=== PATIENT | male | born 1965 | race Caucasian/White ===

== ENCOUNTER → 2020-07-31 07:57 | Outpatient (CLI) | payer OTHER, SELFPAY ==
[2020-07-31 14:30] LABS: COVID19 -Nasal RAPID Negative (Negative)
== END ==
PROVIDERS: PCP Family Medicine; Visit Provider Physical Medicine & Rehabilitation
DX: Z20.822 Contact with and (suspected) exposure to COVID-19 (principal)
CPT/HCPCS: 87635; C9803

== ENCOUNTER 2020-08-02 08:28 | Outpatient (CLI) | payer OTHER, SELFPAY ==
[2020-08-02 08:42] VITALS: BP 130/87; PULSE 99; RESP 18; TEMP 37.1; O2SAT 100
--- NOTE | 2020-08-02 09:12 | PC.NURSE ---
Patient has been taking ASA 650mg in the morning for about the last month, Dr Hernandez reviewed with patient and the procedure has been post pone. Patient ok with plan and office notified to try and get him rescheduled.
== END 2020-08-02 09:14 | disposition home or self-care (01) ==
PROVIDERS: PCP Family Medicine; Referring Provider Family Medicine; Visit Provider Physical Medicine & Rehabilitation
DX: M47.812 Spondylosis without myelopathy or radiculopathy, cervical region (principal); Z53.8 Procedure and treatment not carried out for other reasons

== ENCOUNTER → 2020-10-31 09:50 | Outpatient (CLI) | payer OTHER, SELFPAY ==
--- NOTE | 2020-10-31 09:51 | DI.RAD.S_ITS ---
PROCEDURE: XR CERVICAL SPINE 4V OR 5V INDICATIONS: progressive neck pain TECHNIQUE: 5 views of the cervical spine acquired. COMPARISON: None. FINDINGS: Bones: No fractures or dislocations to the T1 level. Oblique images demonstrate no bony foraminal stenoses. Minimal degenerative disc disease is present to the C6-7 level where moderate disc height reduction is present without subluxation Soft tissues: No prevertebral soft tissue swelling. IMPRESSION: No foraminal stenosis seen. Moderate C6-C7 degenerative disc height reduction with minimal degenerative change more superiorly. No prior trauma found. Dictated by: Jorden Randall M.D. on 10/31/2020 at 10:20 Approved by: Jorden Randall M.D. on 10/31/2020 at 10:21
== END ==
PROVIDERS: PCP Family Medicine; Referring Provider Physical Medicine & Rehabilitation; Visit Provider Physical Medicine & Rehabilitation
DX: M47.812 Spondylosis without myelopathy or radiculopathy, cervical region (principal); M50.20 Other cervical disc displacement, unspecified cervical region; M54.81 Occipital neuralgia; M47.816 Spondylosis without myelopathy or radiculopathy, lumbar region; M51.26 Other intervertebral disc displacement, lumbar region; G56.03 Carpal tunnel syndrome, bilateral upper limbs
CPT/HCPCS: 64405; 64450; 72050; 99214; J1100

== ENCOUNTER 2021-07-31 13:26 | Emergency (ER) | payer OTHER, SELFPAY ==
[2021-07-31] VITALS (9 sets, daily range): BP systolic 133–161; BP diastolic 88–101; PULSE 73–108; RESP 12–21; TEMP 36.5–36.8; O2SAT 95–100; BMI 27.1
--- NOTE | 2021-07-31 13:35 | DI.RAD.S_ITS ---
PROCEDURE: XR CHEST 1V INDICATIONS: chest pain TECHNIQUE: One view of the chest was acquired. COMPARISON: None. FINDINGS: Surgical changes and devices: None. Lungs and pleura: Lungs are clear. No pleural effusions or pneumothorax. Mediastinum: Mediastinal contours appear normal. Heart size is normal. Bones and chest wall: No suspicious bony lesions. Overlying soft tissues appear unremarkable. IMPRESSION: No acute cardiopulmonary findings. Dictated by: Elizabeth Bedoya M.D. on 07/31/2021 at 14:22 Approved by: Elizabeth Bedoya M.D. on 07/31/2021 at 14:22
[2021-07-31 13:58] LABS: Add Manual Diff / Slide Review NO; Basophils Absolute Auto 100 /uL (0-100); Basophils Percent Auto 0.8 % (0-2); Eosinophils Absolute Auto 200 /uL (0-450); Eosinophils Percent Auto 3.5 % (2-4); Hematocrit 43.8 % (41-53); Hemoglobin 15.1 g/dL (13.5-17.5); Lymphocytes Absolute Auto 2200 /uL (1100-4500); Lymphocytes Percent Auto 33.7 % (25-40); Mean Corpuscular HGB Conc 34.6 % (30-36); Mean Corpuscular Hemoglobin 30.7 PG (26-34); Mean Corpuscular Volume 88.9 fL (80-100); Monocytes Absolute Auto 300 /uL (0-900); Monocytes Percent Auto 4.8 % (3-14); Neutrophils Absolute Auto 3700 /uL (1500-7000); Neutrophils Percent Auto 57.2 % (50-75); Platelet Count 219 X10^3/uL (150-400); Red Blood Cell Count 4.93 X10^6/uL (4.5-5.9); Red Cell Distribution Width 12.5 % (11.6-14.8); White Blood Cell Count 6.5 X10^3/uL (4.5-11.0)
[2021-07-31 14:01] LABS: Alanine Aminotransferase 21 IU/L (<50); Albumin 4.3 g/dL (3.5-5.0); Albumin Globulin Ratio 1.4 (1.0-2.8); Alkaline Phosphatase 89 U/L (38-126); Aspartate Aminotransferase 21 IU/L (17-59); BUN Creatinine Ratio 12.9 (6-22); Bilirubin Total 0.5 mg/dL (0.2-1.3); Blood Urea Nitrogen 13 mg/dL (9-20); Calcium 8.7 mg/dL (8.4-10.2); Carbon Dioxide 29 mmol/L (22-32); Chloride 104 mmol/L (98-107); Creatine Kinase 123 U/L (55-170); Estimated Glomerular Filt Rate > 60 mL/min (>60); Glucose 110 mg/dL (70-100); HEMOLYSIS < 15 (0-50); Lipase 149 U/L (23-300); Potassium 3.7 mmol/L (3.4-5.1); Sodium 141 mmol/L (137-145); Total Protein 7.3 g/dL (6.3-8.2)
[2021-07-31 14:13] LABS: Troponin I < 0.012 ng/mL (0.01-0.034)
[2021-07-31 14:17] LABS: CKMB % Relative Index 1.4 % (1.5-5.0); Creatine Kinase MB 1.67 ng/mL (<2.37)
--- NOTE | 2021-07-31 14:30 | ED_ITS ---
HPI - Chest Pain General Chief Complaint: Chest Pain Stated Complaint: Chest pain and pressure, 2d Time Seen by Provider: 07/31/21 14:15 Source: patient Mode of arrival: Ambulatory Limitations: no limitations History of Present Illness HPI narrative: Patient is a 56-year-old male history of migraines and hiatal hernia presenting today with chest discomfort. He says the last 2 days he has had increasing chest discomfort starting his epigastric area and radiating around like a band. He said it was quite bad yesterday and today it is a little bit better however he noticed stable going up stairs today. He denies any shortness of breath. He says it is sharp and stabbing in nature but eventually goes away. His he denies any fever chills her palpitations. His he himself has no known coronary artery disease however he the uncle who at the age of 62 and his maternal grandmother also in her 60s from cardiac issues. Actually had an echocardiogram done a couple 1 to go can see was having some shortness of breath he said that was negative but he did not have any stress test. He is got back from [place] 2 weeks ago he said there he was checked out for a DVT in his left leg he had some bruising on that side. He said they did not find blood clot. He denies any orthopnea. Related Data Home Medications Medication Instructions Recorded Confirmed duloxetine 60 mg capsule,delayed 60 mg PO DAILY 06/11/20 04/10/21 release tizanidine 4 mg capsule 4 mg PO BEDTIME 06/11/20 04/10/21 topiramate 50 mg tablet 50 mg PO BID 06/11/20 04/10/21 gabapentin 300 mg capsule 300 mg PO TID 10/31/20 04/10/21 galcanezumab-gnlm 120 mg/mL 120 mg SUBCUT QMONTH 04/10/21 04/10/21 subcutaneous pen injector (Emgality Pen) Previous Rx's Medication Instructions Recorded tramadol 50 mg tablet 50 mg PO TID PRN #30 tab 08/02/20 Allergies Allergy/AdvReac Type Severity Reaction Status Date / Time No Known Drug Allergies Allergy Verified 07/31/21 13:36 Review of Systems Review of Systems Narrative: GENERAL: Denies chills, fatigue, malaise, fever, sweats, travel HEENT: Denies sinus pain, ear pain, sore throat, difficulty swallowing, neck pain RESPIRATORY: Denies dyspnea, cough, wheezing, hemoptysis, sputum. CARDIOVASCULAR: See HPI GASTROINTESTINAL: Denies nausea, vomiting, abdominal pain, diarrhea, constipation, melena. : Denies dysuria, frequency, incontinence, hematuria, urinary retention, flank pain. MUSCULOSKELETAL: Denies weakness, joint pain, or bony pain SKIN: No rash, no erythema, no pruritus NEUROLOGIC: Denies weakness, dizziness, headache, numbness, change in speech, confusion PSYCHIATRIC: No concerning psychosocial issues. 12 point review of systems is negative except for those stated above and HPI Patient History Medical History Arrhythmia Carpal tunnel syndrome on both sides Facet arthropathy, cervical Facet arthropathy, lumbar Herniated nucleus pulposus, L4-5 HNP (herniated nucleus pulposus), cervical Migraines Occipital neuralgia of left side Pain Surgical History History of hernia surgery Family History Mother Depression Arthritis Hypertension Stroke Father Hyperlipidemia Brother Alcoholic Social History Smoking Status: Never smoker frequency: 3-4 times per week duration: 30-45 minutes/day Smoking Status: Never smoker alcohol intake frequency: holidays/special occasions only Substance Use Type: does not use Exam Initial Vital Signs Initial Vital Signs: Vital Signs Temperature 98.3 F 07/31/21 13:30 Pulse Rate 103 H 07/31/21 13:30 Respiratory Rate 12 07/31/21 13:30 Blood Pressure 161/95 H 07/31/21 13:30 Pulse Oximetry 100 07/31/21 13:30 GENERAL: Well-appearing 56-year-old male in no acute distress. HEENT: Head atraumatic,EOMI, pupils reactive, face symmetric, moist mucous membranes CARDIOVASCULAR: Regular rate and rhythm without murmurs, rubs or gallops. RESPIRATORY: Breath sounds equal bilaterally, no wheezes rales or rhonchi. ABDOMEN: Soft, nontender. Normoactive bowel sounds all 4 quadrants. No guarding or rebound. EXTREMITIES: Normal range of motion, no clubbing or edema. Neurovascularly intact NEUROLOGICAL: Alert and oriented x4.Normal gait and speech. SKIN: Warm, dry, no laceration, no petechiae, no rashes or lesions. Scores HEART Score Heart Score history: Moderately Suspicious Heart Score EKG: Normal Heart Score Age: 45-64 years old Heart Score risk factors: 1-2 risk factors Heart Score troponin: < or = to normal limit Heart Score Total: 3 PERC Score Age greater than or equal to 50 years: Yes Heart rate greater than or equal to 100 bpm: No Room Air O2 Sat less than 95%: No Unilateral leg swelling: No Recent trauma or surgery: No Hemoptysis: No Prior PE or DVT: No Hormone Use: No Total PERC Score: 1 Course Orders Ordered: Discontinued Medications Aspirin (Aspirin 81 Mg Chew Tab) 324 mg PO NOW ONE Stop: 07/31/21 14:47 Last Admin: 07/31/21 15:49 Dose: 324 mg Documented by: NIK Vital Signs Vital signs: Vital Signs - 8 hr 07/31/21 13:30 07/31/21 13:33 07/31/21 13:36 Temperature 98.3 F Pulse Rate 103 H 108 H 104 H Respiratory Rate 12 15 21 Blood Pressure 161/95 H 161/95 H Pulse Oximetry 100 98 98 07/31/21 14:00 07/31/21 14:30 07/31/21 15:00 Temperature Pulse Rate 84 86 81 Respiratory Rate 17 18 19 Blood Pressure 152/93 H 154/93 H 150/100 H Pulse Oximetry 97 97 95 07/31/21 15:30 07/31/21 16:00 Temperature Pulse Rate 84 73 Respiratory Rate 17 17 Blood Pressure 153/101 H Pulse Oximetry 95 96 MDM - Chest Pain Lab Data Result diagrams: 07/31/21 13:42 07/31/21 13:42 Labs: Lab Results 07/31/21 07/31/21 07/31/21 Range/Units 13:42 13:42 13:42 WBC 6.5 (4.5-11.0) X10^3/uL RBC 4.93 (4.5-5.9) X10^6/uL Hgb 15.1 (13.5-17.5) g/dL Hct 43.8 (41-53) % MCV 88.9 (80-100) fL MCH 30.7 (26-34) PG MCHC 34.6 (30-36) % RDW 12.5 (11.6-14.8) % Plt Count 219 (150-400) X10^3/uL Neut % (Auto) 57.2 (50-75) % Lymph % (Auto) 33.7 (25-40) % Trimble % (Auto) 4.8 (3-14) % Eos % (Auto) 3.5 (2-4) % Baso % (Auto) 0.8 (0-2) % Neut # (Auto) 3700 (3695-5450) /uL Lymph # (Auto) 2200 (8854-1434) /uL Trimble # (Auto) 300 (0-900) /uL Eos # (Auto) 200 (0-450) /uL Baso # (Auto) 100 (0-100) /uL D-Dimer < 200 (<230) ng/mL Sodium 141 (137-145) mmol/L Potassium 3.7 (3.4-5.1) mmol/L Chloride 104 (98-107) mmol/L Carbon Dioxide 29 (22-32) mmol/L BUN 13 (9-20) mg/dL Creatinine 1.01 (0.66-1.25) mg/dL Estimated GFR > 60 (>60) mL/min BUN/Creatinine Ratio 12.9 (6-22) Glucose 110 H (70-100) mg/dL Calcium 8.7 (8.4-10.2) mg/dL Magnesium 2.0 (1.6-2.3) mg/dL Total Bilirubin 0.5 (0.2-1.3) mg/dL AST 21 (17-59) IU/L ALT 21 (<50) IU/L Alkaline Phosphatase 89 (38-126) U/L Total Creatine Kinase 123 (55-170) U/L CK-MB (CK-2) 1.67 (<2.37) ng/mL CK-MB (CK-2) Rel Index 1.4 L (1.5-5.0) % Troponin I < 0.012 (0.01-0.034) ng/mL Total Protein 7.3 (6.3-8.2) g/dL Albumin 4.3 (3.5-5.0) g/dL Globulin 3.0 (1.7-4.1) g/dL Albumin/Globulin Ratio 1.4 (1.0-2.8) Lipase 149 (23-300) U/L 07/31/21 Range/Units 15:50 WBC (4.5-11.0) X10^3/uL RBC (4.5-5.9) X10^6/uL Hgb (13.5-17.5) g/dL Hct (41-53) % MCV (80-100) fL MCH (26-34) PG MCHC (30-36) % RDW (11.6-14.8) % Plt Count (150-400) X10^3/uL Neut % (Auto) (50-75) % Lymph % (Auto) (25-40) % Trimble % (Auto) (3-14) % Eos % (Auto) (2-4) % Baso % (Auto) (0-2) % Neut # (Auto) (0630-0057) /uL Lymph # (Auto) (1063-7892) /uL Trimble # (Auto) (0-900) /uL Eos # (Auto) (0-450) /uL Baso # (Auto) (0-100) /uL D-Dimer (<230) ng/mL Sodium (137-145) mmol/L Potassium (3.4-5.1) mmol/L Chloride (98-107) mmol/L Carbon Dioxide (22-32) mmol/L BUN (9-20) mg/dL Creatinine (0.66-1.25) mg/dL Estimated GFR (>60) mL/min BUN/Creatinine Ratio (6-22) Glucose (70-100) mg/dL Calcium (8.4-10.2) mg/dL Magnesium (1.6-2.3) mg/dL Total Bilirubin (0.2-1.3) mg/dL AST (17-59) IU/L ALT (<50) IU/L Alkaline Phosphatase (38-126) U/L Total Creatine Kinase (55-170) U/L CK-MB (CK-2) (<2.37) ng/mL CK-MB (CK-2) Rel Index (1.5-5.0) % Troponin I < 0.012 (0.01-0.034) ng/mL Total Protein (6.3-8.2) g/dL Albumin (3.5-5.0) g/dL Globulin (1.7-4.1) g/dL Albumin/Globulin Ratio (1.0-2.8) Lipase (23-300) U/L Imaging Data Chest x-ray: Radiologist's Impression: Sanjay Morris MR#: [id number] : 1965 Acct:[id number] Age/Sex: 56 / M Date of Service: 07/31/21 Loc: ED Accession Number: [id number] ?? Procedure: XR chest 1V Ordering Provider: Mary Mae D.O. PROCEDURE:? XR CHEST 1V ? INDICATIONS:? chest pain ? TECHNIQUE:? One view of the chest was acquired.? ? COMPARISON:? None. ? FINDINGS:? ? Surgical changes and devices:? None.? ? Lungs and pleura:? Lungs are clear.? No pleural effusions or pneumothorax.? ? Mediastinum:? Mediastinal contours appear normal.? Heart size is normal.? ? Bones and chest wall:? No suspicious bony lesions.? Overlying soft tissues appear unremarkable.? ? IMPRESSION:? No acute cardiopulmonary findings. ? ? Dictated by: Elizabeth Bedoya M.D. on 07/31/2021 at 14:22 ? ? Approved by: Elizabeth Bedoya M.D. on 07/31/2021 at 14:22? ECG Data Interpretation: Normal sinus rhythm rate 105 MT interval 154 QRS [address] changes no T- wave inversion, no priors EKG 2. Heart rate 71 MT interval 158 QRS [address] changes similar to previous EKG she MDM Narrative Medical decision making narrative: The patient is having some chest discomfort it is with exertion and sometimes not. He has a heart score of 3 symptoms may be related to has hiatal hernia. At this time patient has been chest pain-free in the emergency department. The patient did have calf pain with recent travel perc score is 1 and D-dimer is negative unlikely to be pulmonary embolism. Recommend he follow up outpatient with stress test and echocardiogram and I urged him to return to the emergency department if his chest pain changes at any time. Discharge Plan Departure Patient Disposition: Home Clinical Impression: Atypical chest pain Instructions: DI for Atypical Chest Pain Activity Restrictions/Additional Instructions: *You have been diagnosed with atypical chest pain *What to do: Febrile need to follow up with your primary care provider for a stress test and echocardiogram It is possible this pain may or may not be related to your hiatal hernia *Continue to take medications as directed *Follow up with your primary care provider in 2-3 days or call [phone] *Return to ER if you should have increasing chest pain, shortness of breath d ifficulty breathing or any new, worsening or concerning symptoms Prescriptions: No Action tramadol 50 mg tablet 50 mg PO TID PRN (Reason: pain) Qty: 30 1RF Emgality Pen 120 mg/mL pen injector 120 mg SUBCUT QMONTH 0RF tizanidine 4 mg capsule 4 mg PO BEDTIME 0RF duloxetine 60 mg capsule,delayed release(DR/EC) 60 mg PO DAILY 0RF topiramate 50 mg tablet 50 mg PO BID 0RF gabapentin 300 mg capsule 300 mg PO TID 0RF Referrals: Elliott Taylor MD [Primary Care Provider] -
[2021-07-31 15:02] LABS: D Dimer < 200 ng/mL (<230)
[2021-07-31] MEDS: ASPIRIN 81 MG CHEW TAB 324 MG PO (15:49)
[2021-07-31 16:20] LABS: Troponin I < 0.012 ng/mL (0.01-0.034)
== END 2021-07-31 17:15 | disposition home or self-care (01) ==
PROVIDERS: Emergency Provider Emergency Medicine; PCP Family Medicine
DX: R07.89 Other chest pain (principal)
CPT/HCPCS: 36415; 71045; 80053; 82550; 82553; 83690; 83735; 84484; 85025; 85379; 93005; 93010; 99284

== ENCOUNTER → 2021-10-21 17:37 | Outpatient (CLI) | payer OTHER, SELFPAY ==
--- NOTE | 2021-10-21 17:39 | DI.MRI.S_ITS ---
PROCEDURE: MR CERVICAL SPINE WO CON INDICATIONS: left axial neck pain and headaches TECHNIQUE: Noncontrast sagittal T1 spin echo and T2 fast spin echo, sagittal STIR, foraminal oblique sagittal T2 fast spin echo, and axial gradient echo or T2 fast spin echo through the cervical spine. COMPARISON: [facility], RG, MRI C-SPINE WITH CONTRAST, 01/25/2020, 12:34. [facility], CR, XR CERVICAL SPINE 4V OR 5V, 10/31/2020, 9:50. Outside Film, CT, CT SOFT TISSUE NECK WITH CONTRAST, 11/07/2020, 9:48. FINDINGS: Image quality: This examination is limited by involuntary motion artifact. Alignment and Curvature: There is normal bony alignment. Bone Marrow: Marrow demonstrates normal overall signal. Spinal Cord: Visualized spinal cord has normal size and signal. No cerebellar tonsillar herniation. Paraspinous Soft Tissues: No paravertebral masses. Prevertebral soft tissues are normal in thickness. C2-C3: No significant abnormality is seen. C3-C4: Mild loss of disc height is seen. Loss of disc signal is seen. Mild to moderate generalized disc osteophyte complex is seen, with a mild central disc osteophyte protrusion. Moderate facet hypertrophy is seen, left worse than right. There is at least moderate bilateral neural foraminal narrowing seen. Mild to moderate central canal narrowing is seen. These degenerative changes appear mildly progressed compared to 2020. C4-C5: The disc height is well-preserved. Loss of disc signal is seen at this level. A mild degree of generalized disc osteophyte complex is seen. At least moderate facet hypertrophy is seen, left worse than right. There is moderate to severe left-sided and at least moderate right-sided neural foraminal narrowing. Mild central canal narrowing is seen. When comparison is made with the prior images, these findings are similar. C5-C6: Mild loss of disc height is seen. Loss of disc signal is seen. Moderate generalized disc osteophyte complex is seen. Uncovertebral joint hypertrophy is seen at this level. At least moderate facet hypertrophy is seen. Moderate to severe bilateral neural foraminal narrowing can be seen. There is at least moderate central canal narrowing seen, which is exacerbated by hypertrophy of the posterior elements. These degenerative changes are worse than in 2020. C6-C7: Moderate loss of disc height is seen. Loss of disc signal is seen. Mild to moderate disc osteophyte complex is seen, which is eccentric to the left. Moderate facet joint hypertrophy is seen. There is moderate to severe left-sided and moderate right-sided neural foraminal narrowing. Mild central canal narrowing is seen. When comparison is made with the prior images, these findings are similar. C7-T1: The disc height is well-preserved. Loss of disc signal is seen at this level. A mild degree of generalized disc osteophyte complex is seen. Moderate facet joint hypertrophy is seen. No significant neural foraminal or central canal narrowing can be seen. When comparison is made with the prior images, these findings are similar. IMPRESSION: Multiple levels of cervical spine degenerative change are seen, which are overall worst at the C5-C6 level. The degenerative changes are overall mildly progressed compared to 2020. Dictated by: Anshul Lai M.D. on 10/21/2021 at 17:27 Approved by: Anshul Lai M.D. on 10/21/2021 at 17:31
== END ==
PROVIDERS: PCP Family Medicine; Referring Provider Physical Medicine & Rehabilitation; Visit Provider Physical Medicine & Rehabilitation
DX: M54.81 Occipital neuralgia (principal); M50.20 Other cervical disc displacement, unspecified cervical region; M47.812 Spondylosis without myelopathy or radiculopathy, cervical region
CPT/HCPCS: 72141

== ENCOUNTER → 2023-07-13 09:55 | Outpatient (CLI) | payer MEDICARE, OTHER, SELFPAY ==
--- NOTE | 2023-07-13 09:57 | DI.RAD.S_ITS ---
PROCEDURE: XR CERVICAL SPINE 4V OR 5V INDICATIONS: NECK PAIN TECHNIQUE: 5 views of the cervical spine acquired. COMPARISON: [facility], CR, XR CERVICAL SPINE 4V OR 5V, 10/31/2020, 9:50. FINDINGS: Bones: No acute fractures or dislocations to the T1 level. Oblique images demonstrate multifocal mild to moderate neural foraminal narrowing. Multilevel disc space narrowing degenerative endplate changes and multilevel uncovertebral joint and facet hypertrophy are present. Soft tissues: No prevertebral soft tissue swelling. IMPRESSION: [id number] multilevel spondylosis. No acute osseous abnormality. Approved by: Soren Crespo M.D. on 07/13/2023 at 11:05
== END ==
PROVIDERS: PCP Family Medicine; Referring Provider Physical Medicine & Rehabilitation; Visit Provider Physical Medicine & Rehabilitation
DX: M54.81 Occipital neuralgia (principal); M47.22 Other spondylosis with radiculopathy, cervical region; M50.10 Cervical disc disorder with radiculopathy, unspecified cervical region; M48.02 Spinal stenosis, cervical region; G56.03 Carpal tunnel syndrome, bilateral upper limbs; M51.26 Other intervertebral disc displacement, lumbar region; M47.816 Spondylosis without myelopathy or radiculopathy, lumbar region
CPT/HCPCS: 72050; 99214

== ENCOUNTER 2023-08-11 08:16 | Outpatient (CLI) | payer MEDICARE, OTHER, SELFPAY ==
[2023-08-11] VITALS (10 sets, daily range): BP systolic 134–163; BP diastolic 84–93; PULSE 79–103; RESP 11–18; TEMP 36.3; O2SAT 14–100
--- NOTE | 2023-08-11 09:15 | DI.RAD.S_ITS ---
PROCEDURE: PAIN C/T INTERLAMINAR INJECT INDICATIONS: C6-7 translaminar KARYN COMPARISON: MR, MR CERVICAL SPINE WO CON, 10/21/2021, 17:45. [facility], CR, XR CERVICAL SPINE 4V OR 5V, 07/13/2023, 10:16. FINDINGS: Fluoroscopic spot filming was performed to verify placement of spinal needles at the C6-C7 level(s), as labeled on the films. Appropriate location(s) of the needle tip(s) was confirmed by injection of iodinated contrast. IMPRESSION: Fluoroscopy for pain management. Dictated by: Alejandro Donato M.D. on 08/11/2023 at 11:22 Approved by: Alejandro Donato M.D. on 08/11/2023 at 11:23
[2023-08-11] MEDS: MIDAZOLAM 2 MG/2 ML VIAL IV (09:37)
[2023-08-11] MEDS: iopamidoL 15 ML VIAL 3 ML INJ (09:42)
[2023-08-11] MEDS: BUPIVACAINE 0.25% (PF) VIAL 2 ML INJ (09:42)
[2023-08-11] MEDS: DEXAMETHASONE 10 MG/ML VIAL 20 MG INJ (09:42)
[2023-08-11] MEDS: fentaNYL 100 MCG/2 ML INJ 50 MCG IV (09:48)
--- NOTE | 2023-08-11 10:01 | P.PCN_ITS ---
Date/Time/Diagnoses Date of procedure: 08/11/23 Time of procedure: 10:01 Pre-procedure diagnosis: 1. CERVICAL STENOSIS, 2. CERVICAL HNP WITH UPPER EXTREMITY RADICULAR FEATURES Post-procedure diagnosis: same Procedure Notes Procedure: 1. FLUORSCOPICALLY GUIDED CONTRAST CONTROLLED INTERLAMINAR EPIDURAL STEROID INJECTION - C6/7 TL KARYN Indications: Sanjay is referred by Dr. Taylor for treatment of Cervical HNP with Upper Extremity Paresthesias. Physician: Piotr Hernandez Total Fluoroscopy time (seconds): 50 Total sedation minutes: 21 Complications: none Procedure in detail & Post-procedure care: FINDINGS Cervical Stenosis due to disc deterioration and nerve root irritation and nerve root irritation DESCRIPTION OF PROCEDURE Fluoroscopically guided, contrast-controlled C6/7 translaminar epidural steroid injection with conscious sedation. Following review of allergy and review of potential side effects and complications, including, but not necessarily limited to, infection, allergic reaction, local tissue breakdown, temporary as well as permanent nerve injury, stroke, paralysis, and possible , the patient indicated that patient understood and agreed to proceed. An informed consent document was signed by the patient, witnessed by a nurse, and placed in the patient's chart. Additionally, other treatment options including modalities, medications, and physical therapy were reviewed with the patient. After review of previous anaesthesic history and IV conscious sedation the patient was deemed safe to proceed with today?s procedure with IV conscious pipo tion as ASA class II designation. Safety time-out was performed to confirm patient ID, procedure to be performed and site of procedure. IV sedation was accomplished with a combination of 2mg of Versed and 50mcg of Fentanyl administered by the RN after DO order, titrated to patient comfort during the course of the procedure while the patient remained responsive to all verbal commands. In the prone position, following sterile prep and drape of the cervical region, the C6/7 translaminar space was identified fluoroscopically. The skin was anesthetized via a 25-gauge 1.5-inch needle with 1% lidocaine solution. At this point, a 25-gauge, 2.5-inch short bevel spinal needle was atraumatically introduced and advanced under fluoroscopic guidance into epidural space at the C6/7 translaminar space. Depth was confirmed on lateral view. Radiological data, including multiple fluoroscopic views of the cervical spine, reveal a spinal needle at the C6/7 translaminar space. Lateral views then show placement of the needle in the epidural space. Subsequent views show contrast material flowing superiorly and inferiorly in the epidural space. DSA fluoroscopy with live contrast injection, once again, confirmed no vascular or intrathecal uptake. At this point, using loss of resistance technique with saline and air, the epidural space was entered. Following negative aspiration, injection of approximately 1.5 cc of Isovue-200 with live fluoroscopy in the AP view confirmed epidural flow in the epidural space without vascular or intrathecal uptake observed. Subsequently, a test dose of 1 cc of 1% lidocaine solution was injected and patient was observed for two minutes without signs or symptoms of complications, including abdominal pain, shortness of breath, bilateral upper or lower extremity weakness, nausea and vomiting, prior to steroid injection. At this point, 2cc or 20mg of dexamethasone was then injected without incident. The patient tolerated the procedure well without signs or symptoms of complications prior to being transferred to the recovery area for further monitoring, The patient was then transferred to the recovery area where they were observed for an appropriate period of time after the injection. The patient reported a VAS score of 6 prior to the procedure and a post-procedure VAS of 0. POST OP INSTRUCTIONS The patient was provided a Pain Log to continue to record their response to the target-specific procedure prior to follow-up visit with the referring provider. Additionally, specific post-injection care instructions and a contact number to our office were provided if concerns arise regarding possible complications associated with the procedure are suspected.
== END 2023-08-11 10:25 | disposition home or self-care (01) ==
LOC: RAD 08:17
PROVIDERS: PCP Family Medicine; Referring Provider Physical Medicine & Rehabilitation; Visit Provider Physical Medicine & Rehabilitation
DX: M48.02 Spinal stenosis, cervical region (principal); M50.123 Cervical disc disorder at C6-C7 level with radiculopathy
CPT/HCPCS: 62321; 99152; J1100; J2250; J3010; J3490

== ENCOUNTER 2024-05-24 08:38 | Outpatient (CLI) | payer MEDICARE, OTHER, SELFPAY ==
[2024-05-24] VITALS (9 sets, daily range): BP systolic 112–140; BP diastolic 70–88; PULSE 57–68; RESP 16–18; TEMP 36.6; O2SAT 93–100
--- NOTE | 2024-05-24 08:39 | DI.RAD.S_ITS ---
PROCEDURE: PAIN C/T INTERLAMINAR INJECT INDICATIONS: C 6/7 TRANSLAMINAR KARYN COMPARISON: [facility], , PAIN C/T INTERLAMINAR INJECT, 08/11/2023, 9:41. FINDINGS/IMPRESSION: Fluoroscopic spot filming was performed to verify placement of spinal needles at the C6-7 level(s), as labeled on the films. Appropriate location(s) of the needle tip(s) was confirmed by injection of iodinated contrast. Dictated by: Naif Valdez M.D. on 05/24/2024 at 17:13 Approved by: Naif Valdez M.D. on 05/24/2024 at 17:13
[2024-05-24] MEDS: MIDAZOLAM 2 MG/2 ML VIAL IV (10:32)
[2024-05-24] MEDS: DEXAMETHASONE 10 MG/ML VIAL 20 MG INJ (10:39)
[2024-05-24] MEDS: BUPIVACAINE 0.25% (PF) VIAL 2 ML INJ (10:39)
[2024-05-24] MEDS: iopamidoL 15 ML VIAL 3 ML INJ (10:39)
--- NOTE | 2024-05-24 10:53 | P.PCN_ITS ---
Date/Time/Diagnoses Date of procedure: 05/24/24 Time of procedure: 10:53 Pre-procedure diagnosis: 1. CERVICAL STENOSIS, 2. CERVICAL HNP WITH UPPER EXTREMITY RADICULAR FEATURES Post-procedure diagnosis: same Procedure Notes Procedure: 1. FLUORSCOPICALLY GUIDED CONTRAST CONTROLLED INTERLAMINAR EPIDURAL STEROID INJECTION - C6/7 TL KARYN Indications: Sanjay is referred by Dr. Taylor for treatment of Cervical HNP with Upper Extremity Paresthesias. Physician: Piotr Hernandez Total Fluoroscopy time (seconds): 26 Total sedation minutes: 16 Complications: none Procedure in detail & Post-procedure care: FINDINGS Cervical Stenosis due to disc deterioration and nerve root irritation and nerve root irritation DESCRIPTION OF PROCEDURE Fluoroscopically guided, contrast-controlled C6/7 translaminar epidural steroid injection with conscious sedation. Following review of allergy and review of potential side effects and complications, including, but not necessarily limited to, infection, allergic reaction, local tissue breakdown, temporary as well as permanent nerve injury, stroke, paralysis, and possible , the patient indicated that patient understood and agreed to proceed. An informed consent document was signed by the patient, witnessed by a nurse, and placed in the patient's chart. Additionally, other treatment options including modalities, medications, and physical therapy were reviewed with the patient. After review of previous anaesthesic history and IV conscious sedation the patient was deemed safe to proceed with today?s procedure with IV conscious pipo tion as ASA class II designation. Safety time-out was performed to confirm patient ID, procedure to be performed and site of procedure. IV sedation was accomplished with a combination of 2mg of Versed administered by the RN after DO order, titrated to patient comfort during the course of the procedure while the patient remained responsive to all verbal commands. In the prone position, following sterile prep and drape of the cervical region, the C6/7 translaminar space was identified fluoroscopically. The skin was anesthetized via a 25-gauge 1.5-inch needle with 1% lidocaine solution. At this point, a 25-gauge, 2.5-inch short bevel spinal needle was atraumatically introduced and advanced under fluoroscopic guidance into epidural space at the C6/7 translaminar space. Depth was confirmed on lateral view. Radiological data, including multiple fluoroscopic views of the cervical spine, reveal a spinal needle at the C6/7 translaminar space. Lateral views then show placement of the needle in the epidural space. Subsequent views show contrast material flowing superiorly and inferiorly in the epidural space. DSA fluoroscopy with live contrast injection, once again, confirmed no vascular or intrathecal uptake. At this point, using loss of resistance technique with saline and air, the epidural space was entered. Following negative aspiration, injection of approximately 1.5 cc of Isovue-200 with live fluoroscopy in the AP view confirmed epidural flow in the epidural space without vascular or intrathecal uptake observed. Subsequently, a test dose of 1 cc of 1% lidocaine solution was injected and patient was observed for two minutes without signs or symptoms of complications, including abdominal pain, shortness of breath, bilateral upper or lower extremity weakness, nausea and vomiting, prior to steroid injection. At this point, 2cc or 20mg of dexamethasone was then injected without incident. The patient tolerated the procedure well without signs or symptoms of com plications prior to being transferred to the recovery area for further monitoring, The patient was then transferred to the recovery area where they were observed for an appropriate period of time after the injection. The patient reported a VAS score of 6 prior to the procedure and a post-procedure VAS of 0. POST OP INSTRUCTIONS The patient was provided a Pain Log to continue to record their response to the target-specific procedure prior to follow-up visit with the referring provider. Additionally, specific post-injection care instructions and a contact number to our office were provided if concerns arise regarding possible complications associated with the procedure are suspected.
== END 2024-05-24 11:08 | disposition home or self-care (01) ==
LOC: RAD 08:38
PROVIDERS: PCP Family Medicine; Referring Provider Physical Medicine & Rehabilitation; Visit Provider Physical Medicine & Rehabilitation
DX: M48.02 Spinal stenosis, cervical region (principal); M50.123 Cervical disc disorder at C6-C7 level with radiculopathy
CPT/HCPCS: 62321; 99152; J1100; J2250; J3490

== ENCOUNTER → 2024-07-13 09:55 | Outpatient (CLI) | payer MEDICARE, OTHER, SELFPAY ==
--- NOTE | 2024-07-13 09:57 | DI.RAD.S_ITS ---
PROCEDURE: XR LUMBAR SPINE MIN 4V INDICATIONS: Progressive LBP TECHNIQUE: 5 views of the lumbar spine were acquired, including bilateral oblique views. COMPARISON: None. FINDINGS: Lumbar spine curvature and alignment: Normal. Bones: There are no osseous abnormalities. Disc spaces: Severe L4-5 and moderate L5-S1 degenerative disc and facet disease noted. Soft tissues: No soft tissue swelling, calcification or mass. IMPRESSION: Degeneration Dictated by: Luis Albarran M.D. on 07/14/2024 at 11:08 Approved by: Luis Albarran M.D. on 07/14/2024 at 11:09
== END ==
PROVIDERS: PCP Family Medicine; Referring Provider Physical Medicine & Rehabilitation; Visit Provider Physical Medicine & Rehabilitation
DX: M51.26 Other intervertebral disc displacement, lumbar region (principal); M51.369 Other intervertebral disc degeneration, lumbar region without mention of lumbar back pain or lower extremity pain; M51.379 Other intervertebral disc degeneration, lumbosacral region without mention of lumbar back pain or lower extremity pain; M47.816 Spondylosis without myelopathy or radiculopathy, lumbar region; M47.817 Spondylosis without myelopathy or radiculopathy, lumbosacral region; M47.22 Other spondylosis with radiculopathy, cervical region; M50.10 Cervical disc disorder with radiculopathy, unspecified cervical region; G56.03 Carpal tunnel syndrome, bilateral upper limbs; M54.81 Occipital neuralgia
CPT/HCPCS: 72110; 99214

== ENCOUNTER → 2024-07-31 15:55 | Outpatient (CLI) | payer MEDICARE, OTHER, SELFPAY ==
--- NOTE | 2024-07-31 15:57 | DI.MRI.S_ITS ---
PROCEDURE: MR LUMBAR SPINE WO CON INDICATIONS: Progressive LBP TECHNIQUE: Noncontrast sagittal T1 spin echo and T2 fast echo, sagittal STIR, and T2 fast spin echo through the lumbar spine. In cases with scoliosis, additional coronal T2 fast spin echo may be performed. COMPARISON: [facility], CR, XR LUMBAR SPINE MIN 4V, 07/13/2024, 9:52. [facility], RG, XR L-SPINE 2-3V, 03/01/2020, 14:33. [facility], RG, MRI L-SPINE W/O CONTRAST, 03/20/2020, 14:00. FINDINGS: Image quality: Diagnostic, with note made of motion artifact. Alignment and Curvature: There is minimal retrolisthesis seen at L3-L4 and L4-L5. Mild retrolisthesis can be seen at L5-S1. Bone Marrow: Marrow is of normal overall signal. No acute vertebral body compression fractures. Spinal Cord: Conus medullaris terminates at the L1 level. Visualized cord demonstrates normal signal and size. Paraspinous Soft Tissues: No paravertebral masses. T12-L1: Moderate loss of disc height is seen. Loss of disc signal is seen. Mild to moderate disc bulge is seen. There is a superimposed central disc osteophyte protrusion. Mild facet joint hypertrophy is seen. No neural foraminal narrowing is seen. Mild central canal narrowing is seen. L1-L2: Normal appearance. L2-L3: Normal appearance. L3-L4: The disc height is well-preserved. Loss of disc signal is seen at this level. Mild generalized disc bulge is seen. There is a superimposed central/left disc osteophyte protrusion. Mild facet joint hypertrophy is seen. Mild bilateral neural foraminal narrowing is seen. Mild to moderate central canal narrowing is seen. These imaging findings have progressed compared to the prior study. L4-L5: Moderate loss of disc height is seen. Loss of disc signal is seen. Reactive marrow endplate changes are seen on the right, which are hyperintense on T1-weighted and T2-weighted imaging and most consistent with fatty metaplasia (Modic type II changes). Moderate disc bulge is seen, which is eccentric to the right. Moderate facet joint hypertrophy is seen. There is moderate right-sided and mild left-sided neural foraminal narrowing. No significant central canal narrowing is seen. No significant change from the prior. L5-S1: Moderate loss of disc height is seen. Loss of disc signal is seen. Mild to moderate disc bulge is seen, which is eccentric to the left. Moderate facet hypertrophy can be seen, left worse than right. There is mild right-sided and at least moderate left-sided neural foraminal narrowing. There is a degree of compression seen upon the exiting left L5 nerve root. No significant central canal narrowing is seen. When comparison is made with the prior images, these findings are similar. IMPRESSION: Focal lower lumbar spine degenerative changes are seen, which are mildly progressed at L3-L4 compared to 2020. Dictated by: Anshul Lai M.D. on 08/01/2024 at 12:38 Approved by: Anshul Lai M.D. on 08/01/2024 at 12:44
== END ==
LOC: MRI 15:56
PROVIDERS: PCP Family Medicine; Referring Provider Physical Medicine & Rehabilitation; Visit Provider Physical Medicine & Rehabilitation
DX: M51.26 Other intervertebral disc displacement, lumbar region (principal); M47.816 Spondylosis without myelopathy or radiculopathy, lumbar region; M47.817 Spondylosis without myelopathy or radiculopathy, lumbosacral region
CPT/HCPCS: 72148

== ENCOUNTER 2025-01-17 12:38 | Outpatient (CLI) | payer MEDICARE, OTHER, SELFPAY ==
[2025-01-17] VITALS (9 sets, daily range): BP systolic 119–143; BP diastolic 70–92; PULSE 75–81; RESP 14–18; O2SAT 95–100
[2025-01-17] MEDS: MIDAZOLAM 2 MG/2 ML VIAL IV (14:16)
[2025-01-17] MEDS: LIDOCAINE 1% (PF) 5 ML INJ (14:22)
--- NOTE | 2025-01-17 14:37 | P.PCN_ITS ---
Date/Time/Diagnoses Date of procedure: 01/17/25 Time of procedure: 14:37 Pre-procedure diagnosis: FACET ARTHROPATHY Post-procedure diagnosis: same Procedure Notes Procedure: 1. BILATERAL L3, L4 AND L5 DIAGNOSTIC MB BLOCKS Indications: Sanjay is referred by Dr. Taylor for treatment of Bilateral Axial LBP. Physician: Piotr Hernandez Total Fluoroscopy time (seconds): 11 Total sedation minutes: 16 Complications: none Procedure in detail & Post-procedure care: DESCRIPTION OF PROCEDURE Fluoroscopically guided, contrast-controlled bilateral L3, L4 and L5 medial branch blocks with 0.5cc of 0.5% Marcaine. Following review of allergy and review of potential side effects and complications, including, but not necessarily limited to, infection, allergic reaction, local tissue breakdown, nerve injury, paralysis, stroke and possible , the patient indicated that the patient understood and agreed to proceed. An informed consent document was signed by the patient, witnessed by a nurse, and placed in the patient's chart. After review of previous anaesthesic history and IV conscious sedation the patient was deemed safe to proceed with today's procedure with IV conscious sedation as ASA class II designation. Safety time-out was performed to confirm patient ID, procedure to be performed and site of procedure. IV sedation was accomplished with a combination of 2mg of Versed was administered by the RN after DO order, titrated to patient comfort during the course of the procedure while the patient remained responsive to all verbal commands In the prone position, following sterile prep and drape of the lumbar region, the right L3, L4 and L5 anatomical location of the medial branch of the dorsal ramus was identified fluoroscopically. Subsequently an anesthetic skin wheal using 1% lidocaine solution was initiated at each of the anatomical spots. Subsequently then a 22-gauge 3.5-inch spinal needle was atraumatically introduced and advanced under fluoroscopic guidance at each of the corresponding sites at the right L3, L4 and L5 MB. After negative aspiration, 0.2cc of Isovue 200 was injected, confirming placement without vascular or intrathecal uptake. Subsequently then 0.5cc of 0.5% Marcaine solution was injected at each of the corresponding sites at the right L3, L4 and L5 medial branch locations. The identical procedure was replicated on the left. The patient tolerated the pro cedure well without signs or symptoms of complications. The patient tolerated the procedure well without signs or symptoms of complications prior to transfer to the recovery area continued monitoring without incident. Post-procedure, the patient was monitored initiating provocative activities to measure the amount of relief from block of the facetogenic pain. The patient reported a VAS of 7 prior to the procedure and a post-procedure VAS of 1. It has been a pleasure to assist in the diagnostic and therapeutic care of your patient. POST OP INSTRUCTIONS The patient was provided with a Pain Log to complete over the next several hours and subsequent days prior to the patient's follow up with the ordering physician. If the patient has faculty neuropsychologist relief to the solution applied, then they may be a candidate for medial branch rhizotomy. The patient is aware, was provided, once again, with a Pain Log and will follow up with the referring physician for review and clinical correlation
== END 2025-01-17 14:54 | disposition home or self-care (01) ==
LOC: RAD 12:39
PROVIDERS: PCP Family Medicine; Referring Provider Family Medicine; Visit Provider Physical Medicine & Rehabilitation
DX: M47.816 Spondylosis without myelopathy or radiculopathy, lumbar region (principal)
CPT/HCPCS: 64493; 64494; 99152; J2250